=== PATIENT | female | born 1990 | race American Indian/Alaskan Native ===

== ENCOUNTER 2017-07-27 12:52 | Outpatient (CLI) | payer OTHER ==
[2017-09-15] MEDS ORDERED: PRENATAL TABLE1 EAC1 PO (12:18)
[2017-09-16] MEDS ORDERED: ALDOMET500 MG PO (11:06)
== END 2017-07-27 20:48 | disposition home or self-care (01) ==
LOC: OBS/DEL 12:52
DX: Z34.83 Encounter for supervision of other normal pregnancy, third trimester (principal); O26.893 Other specified pregnancy related conditions, third trimester; R42 Dizziness and giddiness; R53.81 Other malaise

== ENCOUNTER 2018-10-12 14:28 | Outpatient (CLI) | payer OTHER ==
[~2018-10-12 14:28] MED LIST: ALDOMET500 MG PO; PRENATAL TABLE1 EAC1 PO
== END 2018-10-12 20:05 | disposition home or self-care (01) ==
LOC: OBS/DEL 14:28
DX: O47.1 False labor at or after 37 completed weeks of gestation (principal); Z34.83 Encounter for supervision of other normal pregnancy, third trimester

== ENCOUNTER 2018-10-15 05:23 | Inpatient (IN) | payer OTHER ==
[~2018-10-15] VITALS: Ht 170.2 cm; Wt 17.0 kg
[2018-10-15] MEDS ORDERED: SYNTHROID88 MCG PO (05:38)
== END 2018-10-17 12:29 | DRG 807 ==
LOC: OBS/DEL 05:23 → LDR 08:45 → OBS/DEL 08:45 → OB/GYN 08:45
PROVIDERS: ADMIT Specialist
PROC: 10E0XZZ Delivery of Products of Conception, External Approach (ICD-10-PCS; principal; 2018-10-15)
PROC: 0W8NXZZ Division of Female Perineum, External Approach (ICD-10-PCS; 2018-10-15)
PROC: 4A1HXCZ Monitoring of Products of Conception, Cardiac Rate, External Approach (ICD-10-PCS; 2018-10-15)
DX: O80 Encounter for full-term uncomplicated delivery (principal); Z37.0 Single live birth; Z3A.39 39 weeks gestation of pregnancy

== ENCOUNTER 2025-05-05 13:38 | Outpatient (CLI) | payer OTHER ==
[~2025-05-05 13:38] MED LIST changes: +SYNTHROID88 MCG PO
== END 2025-05-05 13:41 | disposition home or self-care (01) ==
LOC: SONOGRAMA 13:38
PROVIDERS: ATTEND Internal Medicine Endocrinology, Diabetes & Metabolism
DX: N64.4 Mastodynia (principal); E04.8 Other specified nontoxic goiter